=== PATIENT | male | born 1990 | race American Indian/Alaskan Native ===

== ENCOUNTER 2022-04-16 16:37 | Emergency (ER) | payer SELFPAY ==
[~2022-04-16] VITALS: Ht 188 cm; Wt 83.9 kg
--- OUTSIDE RECORDS SUMMARY | 2022-04-16 16:39 | XMS ---
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 Azeem has no Care Guidelines for this patient. Amanda VISIT COUNT (12 MO.) 1 DARIEL [place] TOTAL 1 NOTE: Visits indicate total known visits. ED/C VISIT TRACKING (12 MO.) 04/16/2022 16:37 DARIEL Song [place] TYPE: Emergency COMPLAINT: - SEIZURE INPATIENT VISIT TRACKING (12 MO.) No inpatient visits to display in this time frame [email or web address]
[2022-04-16] MEDS ORDERED: RITALIN10 MG PO (16:52)
--- NOTE | 2022-04-17 07:55 | EKG ---
[facility] [address] [place] [address] Signed Sinus rhythm with premature atrial complexes Otherwise normal ECG No previous ECGs available Confirmed by JC JAY MD ([id number] on 04/17/2022 7:54:44 AM Electronically Signed By: JC JAY MD 04/17/22 0755 PATIENT NAME: ALCIRA TOUSSAINT Electrocardiogram DATE OF : 89 PHYSICIAN: JC JAY MD REPORT #: [id number] REPORT IS CONFIDENTIAL AND NOT TO BE RELEASED WITHOUT AUTHORIZATION
== END 2022-04-16 21:25 | disposition short-term general hospital (02) ==
LOC: ED 16:37
DX: U07.1 COVID-19 (principal); R56.9 Unspecified convulsions; G93.89 Other specified disorders of brain; F17.200 Nicotine dependence, unspecified, uncomplicated
CPT/HCPCS: 36415; 51702; 70450; 70470; 71045; 80053; 81001; 85025; 87502; 93005; 93010; 99285-25; C9803; J1100; J1953; J2405; Q9967; U0003